=== PATIENT | female | born 1980 | race Caucasian/White ===

== ENCOUNTER 2019-03-08 08:10 | Outpatient (REF) | payer OTHER, SELFPAY ==
[2019-03-08 08:40] LABS: Cholesterol 153 mg/dL (0-200); Glucose 116 mg/dL (74-109); HDL Cholesterol 45 mg/dL (60-100); LDL Cholesterol Calculated 78 mg/dL (50-129); LDL HDL Ratio 1.73 RATIO (0.00-3.22); Triglycerides 152 mg/dL (0-150)
[2019-03-08 09:09] LABS: Estmated Average Glucose 140; Hemoglobin A1C 6.5 % (4.0-6.0)
== END 2019-03-08 08:11 | disposition home or self-care (01) ==
LOC: LAB 08:10
PROVIDERS: Family Provider Family Medicine; Visit Provider Family Medicine
DX: Z01.89 Encounter for other specified special examinations (principal)
CPT/HCPCS: 80061; 82947; 83036

== ENCOUNTER 2019-09-15 16:15 | Emergency (ER) | payer OTHER, SELFPAY ==
[2019-09-15 16:29] VITALS: BP 145/103; PULSE 93; RESP 18; TEMP 36.9; O2SAT 96; BMI 38.0
--- NOTE | 2019-09-15 17:38 | W.ED.EXTPRO ---
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 Patient describes injury occurred just prior to arrival to the ED. She states that she had a patient fall over on top of her forcing her to the ground. She denies any loss of consciousness or head trauma. She endorses having some left ankle and left knee pain when ambulating. Patient was able to ambulate here to the ED, but does have pain with weightbearing and left knee and ankle. Neck pain with numbness/tingling sensation to both right and left hands. She rates her pain in her knee and ankle 6 out of 10. The numbness and tingling to the hands and mostly in the fingertips. Denies any weakness abdominal pain, bladder or bowel symptoms. Associated symptoms: Deny chest pain, fever(s) or rash Review of Systems Const: Denies: fever(s), chills or fatigue Eyes: Denies: change in vision or eye discomfort ENMT: Denies: throat pain, odynophagia, nasal discharge or nasal congestion Card: Denies: chest pain, palpitations, edema, swelling of feet/ankles, dyspnea on exertion or orthopnea Resp: Denies: dyspnea, productive cough or non-productive cough GI: Denies: abdominal pain, nausea, vomiting, diarrhea, constipation or hematochezia : Denies: flank pain, dysuria or hematuria Musc: Reports: neck pain and extremity pain (Left ankle and left knee); Denies: back pain or extremity swelling Skin/Breast: Denies: rash or new lesions Neuro: Reports: other (Tingling sensation to upper extremity fingertips bilaterally.); Denies: headache(s), numbness in extremities or weakness in extremities PFSH ED PFSH: Social History Smoking and tobacco status: former smoker Alcohol intake: never Substance/Drug Use: never Physical Exam Const: COMMON NORMALS: no acute distress, patient oriented x3, healthy appearing and alert GENERAL APPEARANCE: cooperative HENMT: COMMON NORMALS: normocephalic HEAD & SCALP: normocephalic MOUTH: Normal oral and palatal mucosa present THROAT: posterior oropharynx normal and uvula midline Eye: COMMON NORMALS: Equal, round and reactive pupils present and conjunctivae normal CONJUNCTIVA: Yes conjunctivae normal PUPIL: Yes Equal, round and reactive pupils present Neck/C-Spine: COMMON NORMALS: supple GENERAL: Yes normal visual inspection CERVICAL SPINE: Yes cervical ROM normal, No pain with cervical ROM, Yes Cervical spine tenderness C6 and C7 and Yes Paracervical muscle tenderness bilateral Resp: COMMON NORMALS: normal respiratory effort, No retractions, No use of accessory muscles and clear to auscultation bilaterally AUSCULTATION: clear to auscultation bilaterally Cardio: COMMON NORMALS: regular rate, regular rhythm, S1 normal heart sound present, S2 normal heart sound present, No gallops present (Cardio), No clicks present (Cardio), No murmurs present (Cardio) and Peripheral pulses 2+ throughout RATE: regular rate RHYTHM: regular rhythm HEART SOUNDS: S1 normal heart sound present and S2 normal heart sound present PERIPHERAL PULSES: Peripheral pulses 2+ throughout GI: COMMON NORMALS: Normal to inspection, nondistended, normoactive bowel sounds present, Soft to palpation, non-tender and no masses PALPATION: Yes Soft to palpation : COMMON NORMALS: Yes no CVA tenderness BLADDER/KIDNEY EXAM: Yes no CVA tenderness Back/Pelvis: COMMON NORMALS: no CVA tenderness Extremity: GENERAL: Yes normal exam except as noted LEFT LOWER EXTREMITY: Yes knee joint Left knee: Yes palpation (Tender to palpation along the medial and lateral aspect of knee.), Yes ROM (Full with some pain upon movement.) and Yes neurovascular exam (Intact) and Yes ankle joint Left ankle: Yes palpation (Pain upon palpation of the lateral aspect of ankle.), Yes ROM (Limited due to pain.) and Yes neurovascular exam (intact) Neuro: COMMON NORMALS: patient oriented x3 and moves all extremities SENSORIUM/ORIENTATION: Yes alert Skin: COMMON NORMALS: no rashes or lesions noted GENERAL SKIN EXAM: no rashes or lesions noted and dry skin Course Vital Signs: Vital signs: Vital Signs Temperature 98.5 F 09/15/19 16:29 Pulse Rate 66 09/15/19 17:39 Respiratory Rate 16 09/15/19 17:39 Blood Pressure 155/94 09/15/19 17:39 Pulse Oximetry 100 09/15/19 17:39 Coding Level of Care Code ED Boot Turner for Chg Fwd Exam Comprehensive
--- NOTE | 2019-09-15 18:07 | ED_ITS ---
HPI - Extremity Problem General: Chief complaint: Extremity Problem,Nontraumatic Stated complaint: right arm pain Time Seen by Provider: 09/15/19 17:38 History of Present Illness: HPI Narrative: Patient is a 38-year-old female comes to the ED with right arm pain. Patient states that pain occurred 3 days ago. She states that she woke up and she was sleeping on her right arm. She describes her right arm being asleep from laying on it in a weird position and then she got up it started hurting. Right arm pain is rated an 8 out of 10 and is located on the upper part of the arm right where the shoulder and upper arm meet. Any abduction of the arm is painful. Patient says she has had this happen one other time in the past where she slept on her arm weird and it caused some pain and discomfort like this for a couple days before it went away. Patient was [facility] at [facility] yesterday and was given a dose of ibuprofen and prednisone to help with pain. Today patient is still in a lot of pain and wants to be evaluated at the ED. denies any acute falls, trauma or accident causing acute pain. Associated symptoms: Deny chest pain, fever(s) or rash Review of Systems Const: Denies: fever(s), chills or fatigue Eyes: Denies: change in vision or eye discomfort ENMT: Denies: throat pain, odynophagia, nasal discharge or nasal congestion Card: Denies: chest pain, palpitations, edema, swelling of feet/ankles, dyspnea on exertion or orthopnea Resp: Denies: dyspnea, productive cough or non-productive cough GI: Denies: abdominal pain, nausea, vomiting, diarrhea, constipation or hematochezia : Denies: flank pain, dysuria or hematuria Musc: Reports: extremity pain (right upper arm pain) and extremity swelling (edema in right hand); Denies: neck pain or back pain Skin/Breast: Denies: rash or new lesions Neuro: Denies: headache(s), numbness in extremities or weakness in extremities PFS ED PFSH: Social History Smoking and tobacco status: former smoker Alcohol intake: never Substance/Drug Use: never Physical Exam Const: COMMON NORMALS: no acute distress, patient oriented x3 and alert GENERAL APPEARANCE: cooperative HENMT: COMMON NORMALS: normocephalic HEAD & SCALP: normocephalic MOUTH: Normal oral and palatal mucosa present THROAT: posterior oropharynx normal and uvula midline Neck/C-Spine: COMMON NORMALS: supple GENERAL: Yes normal visual inspection Resp: COMMON NORMALS: normal respiratory effort, No retractions, No use of accessory muscles and clear to auscultation bilaterally AUSCULTATION: clear to auscultation bilaterally Cardio: COMMON NORMALS: regular rate, regular rhythm, S1 normal heart sound present, S2 normal heart sound present, No gallops present (Cardio), No clicks present (Cardio), No murmurs present (Cardio) and Peripheral pulses 2+ throughout RATE: regular rate RHYTHM: regular rhythm HEART SOUNDS: S1 normal heart sound present and S2 normal heart sound present PERIPHERAL PULSES: Peripheral pulses 2+ throughout GI: COMMON NORMALS: Normal to inspection, nondistended, normoactive bowel sounds present, Soft to palpation, non-tender and no masses PALPATION: Yes Soft to palpation : COMMON NORMALS: Yes no CVA tenderness BLADDER/KIDNEY EXAM: Yes no CVA tenderness Back/Pelvis: COMMON NORMALS: no CVA tenderness Extremity: NARRATIVE EXTREMITY EXAM: Patient has some visible edema in the right hand and localized tenderness over deltoid muscle of right arm. No visible ecchymosis seen. Her range of motion is limited due to pain and any abducting movements of left arm cause pain. Radial pulse of right hand is 2+ and sensation to the hand is intact. Normal strength in right hand. Neuro: COMMON NORMALS: patient oriented x3 and moves all extremities SENSORIUM/ORIENTATION: Yes alert Skin: COMMON NORMALS: no rashes or lesions noted GENERAL SKIN EXAM: no rashes or lesions noted and dry skin Course Vital Signs: Vital signs: Vital Signs Temperature 98.5 F 09/15/19 16:29 Pulse Rate 81 09/15/19 20:03 Respiratory Rate 16 09/15/19 20:03 Blood Pressure 150/96 09/15/19 20:03 Pulse Oximetry 96 09/15/19 20:03 MDM - Extremity (Nontraumatic) MDM Narrative: Medical decision making narrative: Patient is a 38-year-old female who comes to the ED with nontraumatic right arm shoulder pain and some swelling in the hand. X-ray of right shoulder showed no acute fractures or findings. Ultrasound venous duplex of right upper extremity showed no DVTs or blood clots. Patient discharged and told to follow-up with PCP in 5-7 days for reevaluation. Return to ED precautions given. Patient understood and agree with plan. Imaging Data^: US Vascular: Attestation: I personally reviewed and interpreted this imaging study as follows: Radiologist's impression: Right upper extremity venous duplex ultrasound performed?prelim report showed no blood clots or DVTs. Xray Ortho: Attestation: I personally reviewed and interpreted this imaging study as follows: My impression: Right shoulder x-ray showed no acute fractures or findings. Discharge Plan Discharge Patient Disposition: Home Clinical Impression: Arm pain, right Condition: Stable Prescriptions: No Action Multiple Vitamins Tablet 1 tab PO DAILY RF: 0 metformin 500 mg tablet 500 mg PO BID RF: 0 prednisone 20 mg tablet 40 mg PO DAILY RF: 0 Protonix 20 mg Tablet,Delayed Release (Dr/Ec) 20 mg PO DAILY RF: 0 alprazolam 0.5 mg tablet 0.5 mg PO BID PRN (Reason: unknown) RF: 0 ibuprofen 600 mg tablet 600 mg PO PRN RF: 0 Discharge Orders: Discharge Order (Routine); Ordered 09/15/19 Ordered By: Sy Kim Referrals: Geoff Garcia MD [Primary Care Provider] - Discharge Diet: Regular Discharge Activity: Increase activity as tolerated Activity Restrictions/Additional Instructions: Follow-up with medical provider as directed in 5-7 days. Continue taking all home medications as prescribed. Continue taking your ibuprofen and prednisone to help with pain. Ice arm as well to help with symptoms. Return to the ER or your medical provider if condition worsens. Please read and understand discharge instructions. If any questions, please ask. Discharge Date/Time: 09/15/19 20:10 Coding Level of Care Code ED Subway Conductor for Riana Fwd Exam Comprehensive
[2019-09-15 18:17] VITALS: PULSE 96; RESP 18; O2SAT 97
--- NOTE | 2019-09-15 18:25 | USCV_ITS ---
Kelsey Alexis Age: 38 Gender: F : 1980 Exam Date: 09/15/2019 19:32 Ordering Phys: Sy Kim Technologist: Cosme Knight Exam Location: [facility] [place] Indication: RT ARM PAIN AND SWELLING HISTORY: Upper extremity pain. PROCEDURES: Venous duplex imaging was performed in only the right upper extremity. The following venous structures were evaluated: internal jugular vein, subclavian vein, axillary vein, and brachial veins. In addition, the basilic vein, cephalic vein, radial vein, and ulnar vein. FINDINGS: No evidence of deep vein thrombosis or superficial thrombophlebitis in the right upper extremity. CONCLUSIONS No evidence of thrombus of the right upper extremity veins. Timothy Johnson MD (Electronically Signed) Final Date: 16 September 2019 12:04 S
--- NOTE | 2019-09-15 18:25 | XRR_ITS ---
PROCEDURE INFORMATION: Exam: XR Right Shoulder Exam date and time: 09/15/2019 6:48 PM Age: 38 years old Clinical indication: Right; Patient HX: Intense shoulder pain, no trauma TECHNIQUE: Imaging protocol: XR Right shoulder. Views: AP internal and external rotation views, and a scapular Y view of the right shoulder. COMPARISON: No relevant prior studies available. FINDINGS: Bones/joints: Normal. Soft tissues: Normal. XR/XR shoulder RT min 2V* [id number] IMPRESSION: No acute bony abnormality identified.
[2019-09-15] MEDS: HYDROcodone-acetaminophen 7.5-325 mg Tablet 1 TAB PO ×2 (18:30→20:05)
[2019-09-15 20:03] VITALS: BP 150/96; PULSE 81; RESP 16; O2SAT 96
== END 2019-09-15 20:10 | disposition home or self-care (01) ==
PROVIDERS: Emergency Provider Physician Assistant; PCP Family Medicine
DX: M79.601 Pain in right arm (principal); Z87.891 Personal history of nicotine dependence
CPT/HCPCS: 12345; 73030; 93971; 99281; 99283

== ENCOUNTER → 2020-01-03 10:35 | Outpatient (BNVA) | payer OTHER, SELFPAY | PROVIDERS: PCP Family Medicine; Visit Provider Nurse Practitioner Family | DX: Z20.828 Contact with and (suspected) exposure to other viral communicable diseases (principal); J06.9 Acute upper respiratory infection, unspecified | CPT/HCPCS: 87426 ==

== ENCOUNTER 2020-01-26 11:36 | Outpatient (CLI) | payer OTHER, SELFPAY ==
--- NOTE | 2020-01-26 11:45 | USCV_ITS ---
Kelsey Alexis Age: 39 Gender: F : 1980 Exam Date: 01/26/2020 11:51 Ordering Phys: Ivy Lanza MD ([email or web address]) Technologist: Cristiane Freeman [place] [facility] [place]: PAIN IN RT LOWER LEG. HISTORY: Pain in Rt. Lower Leg PROCEDURES: Venous duplex imaging was performed in only the right lower extremity. The following venous structures were evaluated: common femoral vein, profunda vein, proximal portion of the greater saphenous vein, superficial femoral vein, and the popliteal vein. In addition, the posterior tibial and peroneal trunk were evaluated. Serial compression, augmentation maneuvers, and spectral Doppler flow evaluation were performed. FINDINGS: Normal 2-D Doppler and augmentation and compressibility throughout the lower extremity venous structures. Additional imaging through the proximal calf veins also reveals no thrombus. Limited evaluation of the greater saphenous vein is patent with no thrombus. CONCLUSIONS No DVT right lower extremity. Dr. Patt Barnett DO (Electronically Signed) Final Date: 26 January 2020 13:14 S
== END 2020-01-26 11:37 | disposition home or self-care (01) ==
LOC: RAD 11:45
PROVIDERS: PCP Family Medicine; Visit Provider Internal Medicine Cardiovascular Disease
DX: M79.604 Pain in right leg (principal)
CPT/HCPCS: 93971

== ENCOUNTER 2020-04-25 12:40 | Outpatient (CLI) | payer OTHER, SELFPAY ==
[2020-04-25 13:37] LABS: Add Urine Microscopic? YES; Bilirubin Urine Neg (Negative); Blood Urine 3+ (Negative); Glucose Urine UA Norm (Normal); Ketones Urine Negative (Negative); Leukocyte Esterase Urine Negative (Negative); Nitrate Urine Negative (Negative); Protein Urine Neg (Negative); Specific Gravity, Urine 1.025 (1.005-1.030); Urine Appearance Clear (CLEAR); Urine Color Yellow (Yellow); Urobilinogen Urine Norm (Negative); pH Urine 5 (5-7)
[2020-04-25 13:49] LABS: Add Urine Culture? No; Bacteria Urine 1+ /hpf; Mucus Urine 2+ /hpf; WBC Urine 0-4 /hpf (0-5)
== END 2020-04-25 12:41 | disposition home or self-care (01) ==
PROVIDERS: Visit Provider Nurse Practitioner Family
DX: R82.90 Unspecified abnormal findings in urine (principal)
CPT/HCPCS: 81001

== ENCOUNTER 2021-04-29 16:00 | Outpatient (CLI) | payer OTHER, SELFPAY | END 2021-04-29 16:01 | disposition home or self-care (01) | LOC: SLEEP 04-30 08:30 | PROVIDERS: PCP Family Medicine; Visit Provider Internal Medicine Pulmonary Disease | DX: G47.19 Other hypersomnia (principal); G47.33 Obstructive sleep apnea (adult) (pediatric) | CPT/HCPCS: G0399 ==

== ENCOUNTER → 2023-01-13 10:37 | Outpatient (BNVA) | payer OTHER, SELFPAY | PROVIDERS: PCP Family Medicine; Visit Provider Internal Medicine Rheumatology | DX: Z11.1 Encounter for screening for respiratory tuberculosis (principal); M17.11 Unilateral primary osteoarthritis, right knee; M77.8 Other enthesopathies, not elsewhere classified; Z11.59 Encounter for screening for other viral diseases; Z79.899 Other long term (current) drug therapy | CPT/HCPCS: 36415; 73130; 73562; 73630; 80076; 82306; 82565; 85025; 86480; 86803 ==

== ENCOUNTER 2023-09-16 16:44 | Outpatient (CLI) | payer OTHER, SELFPAY ==
[2023-09-16 17:49] LABS: Basophils # 0.1 10^3/uL (0.0-0.1); Eosinophils # 0.1 10^3/uL (0.0-0.8); Lymphocytes # 2.7 10^3/uL (0.8-4.8); Lymphocytes % 37.9 %; Mean Corpuscular HGB Conc 32.8 g/dL (30-55); Mean Corpuscular Volume 85.3 fl (85-98); Mean Platelet Volume 11.3 fL (7.4-10.4); Monocytes # 0.8 10^3/uL (0.2-0.9); Monocytes % 11.6 %; Neutrophils # 3.42 10^3/uL (1.8-7.7); Neutrophils % 48.2 %; Nucleated Red Blood Cells % 0 %; Platelet Count 252 10^3/cmm (157-399); Red Blood Count 5.39 10^6/uL (3.85-5.65); Red Cell Distribution Width 13.5 % (12.1-15.1); White Blood Count 7.08 10^3/uL (3.29-11.43)
[2023-09-16 18:01] LABS: Alanine Aminotransferase 26 U/L (0-33); Albumin Level 4.4 g/dL (3.5-5.2); Alkaline Phosphatase 65 U/L (35-105); Aspartate Amino Transferase 23 U/L (0-32); C Reactive Protein 3.7 mg/L (0.0-4.9); Globulin 3.1 g/dL (1.3-4.6); Glomerular Filtration Rate 109.1 mL/min (90-130); Total Bilirubin 0.6 mg/dL (0.15-1.2); Total Protein 7.5 g/dL (6.6-8.7)
[2023-09-16 18:10] LABS: Erythrocyte Sedimentation Rate 24 mm/hr (0-15)
== END 2023-09-16 16:45 | disposition home or self-care (01) ==
LOC: LAB 16:46
PROVIDERS: PCP Family Medicine; Visit Provider Internal Medicine Rheumatology
DX: Z79.899 Other long term (current) drug therapy (principal); M05.79 Rheumatoid arthritis with rheumatoid factor of multiple sites without organ or systems involvement
CPT/HCPCS: 36415; 80076; 82565; 85025; 85651; 86140

== ENCOUNTER 2024-07-05 16:53 | Outpatient (CLI) | payer OTHER, SELFPAY ==
[2024-07-05 17:30] LABS: Basophils # 0.1 10^3/uL (0.0-0.1); Eosinophils # 0.2 10^3/uL (0.0-0.8); Eosinophils % 2.2 %; Hematocrit 43.5 % (36-47); Lymphocytes # 2.8 10^3/uL (0.8-4.8); Lymphocytes % 30.5 %; Mean Corpuscular HGB Conc 32.2 g/dL (30-55); Mean Corpuscular Volume 90.2 fl (85-98); Mean Platelet Volume 10.6 fL (7.4-10.4); Monocytes # 0.9 10^3/uL (0.2-0.9); Monocytes % 9.3 %; Neutrophils % 56.7 %; Nucleated Red Blood Cells % 0 %; Platelet Count 249 10^3/cmm (157-399); Red Blood Count 4.82 10^6/uL (3.85-5.65); Red Cell Distribution Width 13.9 % (12.1-15.1); White Blood Count 9.17 10^3/uL (3.29-11.43)
[2024-07-05 17:32] LABS: Erythrocyte Sedimentation Rate 6 mm/hr (0-15)
[2024-07-05 18:19] LABS: Alanine Aminotransferase 20 U/L (0-33); Albumin Level 4.1 g/dL (3.5-5.2); Alkaline Phosphatase 63 U/L (35-105); Aspartate Amino Transferase 20 U/L (0-32); C Reactive Protein 5.2 mg/L (0.0-4.9); Globulin 2.8 g/dL (1.3-4.6); Glomerular Filtration Rate 108.6 mL/min (90-130); Total Bilirubin 0.3 mg/dL (0.15-1.2); Total Protein 6.9 g/dL (6.6-8.7)
== END 2024-07-05 16:54 | disposition home or self-care (01) ==
PROVIDERS: PCP Family Medicine; Visit Provider Internal Medicine Rheumatology
DX: Z79.899 Other long term (current) drug therapy (principal)
CPT/HCPCS: 36415; 80076; 82565; 85025; 85651; 86140

== ENCOUNTER 2024-10-20 16:01 | Outpatient (CLI) | payer OTHER, SELFPAY ==
[2024-10-20 16:27] LABS: Hematocrit 42.8 % (36-47); Hemoglobin 13.70 g/dL (11.27-16.99); Mean Corpuscular HGB Conc 32.0 g/dL (30-55); Mean Corpuscular Hemoglobin 27.8 pg (27-33); Mean Corpuscular Volume 86.8 fl (85-98); Nucleated Red Blood Cells % 0 %; Platelet Count 305 10^3/cmm (157-399); Red Blood Count 4.93 10^6/uL (3.85-5.65); White Blood Count 10.00 10^3/uL (3.29-11.43)
[2024-10-20 17:46] LABS: Alanine Aminotransferase 15 U/L (0-33); Albumin Level 3.9 g/dL (3.5-5.2); Alkaline Phosphatase 73 U/L (35-105); Aspartate Amino Transferase 13 U/L (0-32); Globulin 3.4 g/dL (1.3-4.6); Total Protein 7.3 g/dL (6.6-8.7)
== END 2024-10-20 16:02 | disposition home or self-care (01) ==
PROVIDERS: PCP Family Medicine; Visit Provider Internal Medicine Rheumatology
DX: Z79.899 Other long term (current) drug therapy (principal); M05.79 Rheumatoid arthritis with rheumatoid factor of multiple sites without organ or systems involvement
CPT/HCPCS: 36415; 80076; 82565; 82657; 85025; 85651; 86140; 86480